=== PATIENT | female | born 2000 | race Two or more races ===

== ENCOUNTER 2022-10-02 17:15 | Emergency (ER) | payer OTHER ==
[~2022-10-02] VITALS: Ht 160 cm; Wt 52.2 kg
[2022-10-02] MEDS ORDERED: DICLOFENAC SODI75 MG PO (19:02)
== END 2022-10-02 19:08 | disposition home or self-care (01) ==
LOC: ER 17:15
DX: R10.2 Pelvic and perineal pain (principal); N83.292 Other ovarian cyst, left side